=== PATIENT | female | born 1980 | race African-American/Black ===

== ENCOUNTER 2024-03-15 17:43 | Emergency (ER) | payer BC ==
[~2024-03-15] VITALS: Ht 162.6 cm; Wt 70.3 kg
[2024-03-15 20:41] VITALS: BP 125/79; TEMP 98.1; O2SAT 99
== END 2024-03-15 20:42 | disposition home or self-care (01) ==
LOC: ER 17:54
DX: S00.83XA Contusion of other part of head, initial encounter (principal); S06.0XAA Concussion with loss of consciousness status unknown, initial encounter; S60.222A Contusion of left hand, initial encounter; W01.0XXA Fall on same level from slipping, tripping and stumbling without subsequent striking against object, initial encounter; Y93.89 Activity, other specified; Y92.89 Other specified places as the place of occurrence of the external cause; Y99.8 Other external cause status
CPT/HCPCS: 70450-TC; 70486-TC; 73130-TC